=== PATIENT | female | born 1960 | race Asian ===

== ENCOUNTER 2017-09-07 08:20 | Emergency (ER) | payer OTHER ==
[~2017-09-07] VITALS: Ht 162.6 cm; Wt 65.0 kg
[~2017-09-07 08:20] MED LIST: DIAZ2 PO; ECOT81TA2 PO; MECL25CH PO
[2017-09-07 08:27] VITALS: BP 163/83; PULSE 74; RESP 17; TEMP 97.6
--- NOTE | 2017-09-07 11:19 | PD ---
HPI Chief Complaint: Abdominal Pain Time Seen by Provider: 11:18 Travel History International Travel<30 days: No Contact w/Intl Traveler<30days: No Traveled to known affect area: No History of Present Illness HPI 57-year-old female presents emergency department with right lower quadrant abdominal pain which started yesterday. Patient has history of reflux for which she takes Pepcid [id number]. Patient states the pain is localized to the right lower and middle abdomen. She denies fever, chills, but has had some nausea but no vomiting. She denies changes in her bowels and no diarrhea. She denies vaginal discharge. Pain is currently 7 out of 10 and worse with movement. It hurts her to walk or sit. Patient has no history of abdominal surgeries. Patient denies urinary symptoms. She denies flank pain. She denies . She has no known drug allergies. PFSH Past Medical History Hx Anticoagulant Therapy: No Asthma: No Blood Disorders: No Anxiety: No Depression: No Heart Rhythm Problems: No Cancer: No Cardiovascular Problems: No High Cholesterol: No Chemotherapy: No Chest Pain: No Congestive Heart Failure: No COPD: No Cerebrovascular Accident: No Diabetes: No Diminished Hearing: No Endocrine: No Genitourinary: No Headaches: Yes Immune Disorder: No Musculoskeletal: No Neurologic: No Psychiatric: No Reproductive: No Respiratory: No Radiation Therapy: No Sleep Apnea: No ?: Not : 0 Past Surgical History AICD: No Arteriovenous Shunt: No Hysterectomy: No Insulin Pump: No Joint Replacement: No Pacemaker: No Social History Alcohol Use: No Tobacco Use: No Substance Use: No Allergies-Medications (Allergen,Severity, Reaction): Coded Allergies: No Known Allergies (Verified Adverse Reaction, Unknown, 09/07/17) Reported Meds & Prescriptions Reported Meds & Active Scripts Active No Active Prescriptions or Reported Medications Review of Systems Except as stated in HPI: all other systems reviewed are Neg General / Constitutional: No: Fever, Chills Eyes: No: Visual changes HENT: No: Headaches Cardiovascular: No: Chest Pain or Discomfort Respiratory: No: Shortness of Breath Gastrointestinal: Positive: Nausea, Abdominal Pain, Loss of Appetite, No: Vomiting, Diarrhea, Constipation, Changes in Bowel Habits (See history of present illness), Indigestion, Dysphagia Genitourinary: No: Urgency, Frequency, Dysuria, Pelvic Pain, Flank Pain, Discharge, Vaginal Bleeding Musculoskeletal: No: Pain Skin: No Rash Neurologic: No: Weakness Psychiatric: No: Depression Endocrine: No: Polydipsia Hematologic/Lymphatic: No: Easy Bruising Physical Exam Narrative GENERAL: Patient appears in moderate distress. SKIN: Warm and dry. Decreased pallor. Normal turgor. HEAD: Atraumatic. Normocephalic. EYES: Pupils equal and round. No scleral icterus. No injection or drainage. ENT: No nasal bleeding or discharge. Mucous membranes pink and moist. Pharynx is clear. Airways patent NECK: Trachea midline. Supple and nontender. CARDIOVASCULAR: Regular rate and rhythm. RESPIRATORY: No accessory muscle use. Clear to auscultation. Breath sounds equal bilaterally. GASTROINTESTINAL: Abdomen soft, moderate right lower quadrant and middle suprapubic tenderness, nondistended. No significant rebound noted. Negative psoas sign. Hepatic and splenic margins not palpable. MUSCULOSKELETAL: Extremities without clubbing, cyanosis, or edema. No obvious deformities. NEUROLOGICAL: Awake and alert. No obvious cranial nerve deficits. Motor grossly within normal limits. Five out of 5 muscle strength in the arms and legs. Normal speech. PSYCHIATRIC: Appropriate mood and affect; insight and judgment normal. Data Data Last Documented VS Vital Signs Date Time Temp Pulse Resp B/P (MAP) Pulse Ox O2 Delivery O2 Flow Rate FiO2 09/07/17 12:19 61 16 129/79 (96) 98 Room Air 09/07/17 08:27 97.6 Orders Orders Complete Blood Count With Diff (09/07/17 11:25) Comprehensive Metabolic Panel (09/07/17 11:25) Lipase (09/07/17 11:25) Lactic Acid (09/07/17 11:25) Prothrombin Time / Inr (Pt) (09/07/17 11:25) Act Partial Throm Time (Ptt) (09/07/17 11:25) Urinalysis - C+S If Indicated (09/07/17 11:25) Ct Abd/Pel W Iv Contrast(Rout) (09/07/17 11:25) Iv Access Insert/Monitor (09/07/17 11:25) Ecg Monitoring (09/07/17 11:25) Oximetry (09/07/17 11:25) NPO (09/07/17 11:25) Morphine Inj (Morphine Inj) (3/29/18 11:30) Ondansetron Inj (Zofran Inj) (09/07/17 11:30) Sodium Chlor 0.9% 1000 Ml Inj (Ns 1000 M (09/07/17 11:25) Sodium Chloride 0.9% Flush (Ns Flush) (09/07/17 11:30) Famotidine Inj (Pepcid Inj) (09/07/17 11:30) Ed Urine Pregnancytest Poc (09/07/17 11:25) Us Pelvis Comp Farmworker Fruit/Non-Preg (09/07/17 13:22) Mri Abdomen W&W/O Contrast (09/07/17 ) Morphine Inj (Morphine Inj) (09/07/17 15:15) Ketorolac Inj (Toradol Inj) (09/07/17 15:30) Gadodiamide Pf Inj (Omniscan Pf Inj) (09/07/17 16:47) Labs Laboratory Tests Test 09/07/17 11:30 09/07/17 11:55 White Blood Count 14.5 TH/MM3 Red Blood Count 4.92 MIL/MM3 Hemoglobin 14.9 GM/DL Hematocrit 44.7 % Mean Corpuscular Volume 90.8 FL Mean Corpuscular Hemoglobin 30.4 PG Mean Corpuscular Hemoglobin Concent 33.5 % Red Cell Distribution Width 13.5 % Platelet Count 219 TH/MM3 Mean Platelet Volume 8.8 FL Neutrophils (%) (Auto) 78.3 % Lymphocytes (%) (Auto) 17.1 % Monocytes (%) (Auto) 3.9 % Eosinophils (%) (Auto) 0.3 % Basophils (%) (Auto) 0.4 % Neutrophils # (Auto) 11.4 TH/MM3 Lymphocytes # (Auto) 2.5 TH/MM3 Monocytes # (Auto) 0.6 TH/MM3 Eosinophils # (Auto) 0.0 TH/MM3 Basophils # (Auto) 0.1 TH/MM3 CBC Comment DIFF FINAL Differential Comment Prothrombin Time 10.0 SEC Prothromb Time International Ratio 1.0 RATIO Activated Partial Thromboplast Time 27.5 SEC Blood Urea Nitrogen 9 MG/DL Creatinine 0.72 MG/DL Random Glucose 86 MG/DL Total Protein 8.5 GM/DL Albumin 4.0 GM/DL Calcium Level 9.3 MG/DL Alkaline Phosphatase 99 U/L Aspartate Amino Transf (AST/SGOT) 23 U/L Alanine Aminotransferase (ALT/SGPT) 34 U/L Total Bilirubin 1.6 MG/DL Sodium Level 138 MEQ/L Potassium Level 3.8 MEQ/L Chloride Level 104 MEQ/L Carbon Dioxide Level 26.5 MEQ/L Anion Gap 8 MEQ/L Estimat Glomerular Filtration Rate 83 ML/MIN Lipase 131 U/L Urine Color YELLOW Urine Turbidity CLEAR Urine pH 6.5 Urine Specific [place] 1.010 Urine Protein NEG mg/dL Urine Glucose (UA) NEG mg/dL Urine Ketones 40 mg/dL Urine Occult Blood MOD Urine Nitrite NEG Urine Bilirubin NEG Urine Urobilinogen LESS THAN 2.0 MG/DL Urine Leukocyte Esterase SMALL Urine RBC 1 /hpf Urine WBC 2 /hpf Urine Squamous Epithelial Cells 5 /hpf Microscopic Urinalysis Comment CULT NOT INDICATED Lactic Acid Level 0.9 mmol/L MDM Medical Decision Making Medical Screen Exam Complete: Yes Emergency Medical Condition: Yes Differential Diagnosis Right lower quadrant pain. Appendicitis. Kidney stone. Urinary tract infection. Ovarian cyst. Ectopic . Narrative Course Patient is medically stable at time of exam Labs ordered including CBC, CMP, lactic acid, lipase, coagulation studies, and urinalysis. Urine is ordered. IV access is obtained the patient is given 1000 mL normal saline bolus. Patient is given 2 mg morphine IV as well as 4 mg Zofran IV as well as [address] of the abdomen/pelvis with IV contrast is ordered. CBC shows leukocytosis of 14.5 with 78.3% neutrophils Coagulation studies are normal. Chemistries are unremarkable except for GFR of 83, bilirubin elevated at 1.8, total protein is 8.5. Lactic acid is normal at 0.9 Urinalysis unremarkable except for 40 ketones and moderate blood. No signs of infection noted. CT shows: 1. The expected region of this cervix is significantly enlarged and measures 7.2 x 4.8 cm. The uterine endometrium also appears somewhat thickened for the patient's age. Pelvic ultrasound may be helpful for further evaluation of this finding. 2. Enlarged fibroid uterus. 3. 3.5 cm left ovarian cyst. 4. Lobulated low density lesion within the left lobe of liver measuring 2.4 cm in greatest dimension which is indeterminate. MRI of the abdomen with contrast may be helpful for further evaluation of this finding. Pelvic ultrasound, and abdominal MRI with and without contrast is ordered. Ultrasound shows: 1. There is a focal uterine fibroid measuring 3.4 cm on the left lower uterine segment. 2. Tiny 5 mm cyst associated with the endometrial lining. 3. Left ovarian cyst measuring 2.8 cm. No free fluid in the cul-de-sac. Abdominal MRI shows: CONCLUSION: Left lobe liver cyst. Otherwise unremarkable Patient is felt to have pain due to her fibroids and ovarian cyst. Patient will be treated with ibuprofen 600 mg 3 times daily #30. Patient is given Zofran 4 mg every 6 hours as needed nausea and vomiting Recommend close follow-up with a local [employer]GR[employer]MICALS INSPECTOR as discussed. Patient can return if symptoms worsen as needed. Diagnosis Primary Impression: Fibroid Qualified Codes: D25.9 - Leiomyoma of uterus, unspecified Additional Impression: Ovarian cyst Qualified Codes: N83.202 - Unspecified ovarian cyst, left side Referrals: [facility] Patient Instructions: General Instructions, Ovarian Cyst (ED) Additional Instructions: CBC shows leukocytosis of 14.5 with 78.3% neutrophils Coagulation studies are normal. Chemistries are unremarkable except for GFR of 83, bilirubin elevated at 1.8, total protein is 8.5. Lactic acid is normal at 0.9 Urinalysis unremarkable except for 40 ketones and moderate blood. No signs of infection noted. CT shows: 1. The expected region of this cervix is significantly enlarged and measures 7.2 x 4.8 cm. The uterine endometrium also appears somewhat thickened for the patient's age. Pelvic ultrasound may be helpful for further evaluation of this finding. 2. Enlarged fibroid uterus. 3. 3.5 cm left ovarian cyst. 4. Lobulated low density lesion within the left lobe of liver measuring 2.4 cm in greatest dimension which is indeterminate. MRI of the abdomen with contrast may be helpful for further evaluation of this finding. Pelvic ultrasound, and abdominal MRI with and without contrast is ordered. Ultrasound shows: 1. There is a focal uterine fibroid measuring 3.4 cm on the left lower uterine segment. 2. Tiny 5 mm cyst associated with the endometrial lining. 3. Left ovarian cyst measuring 2.8 cm. No free fluid in the cul-de-sac. Abdominal MRI shows: CONCLUSION: Left lobe liver cyst. Otherwise unremarkable Patient is felt to have pain due to her fibroids and ovarian cyst. Patient will be treated with ibuprofen 600 mg 3 times daily #30. Patient is given Zofran 4 mg every 6 hours as needed nausea and vomiting Recommend close follow-up with a local A[employer]IC[employer]MICALS INSPECTOR as discussed. Patient can return if symptoms worsen as needed. Med/Other Pt SpecificInfo: Prescription(s) given Scripts No Active Prescriptions or Reported Meds Disposition: 01 DISCHARGE HOME Condition: Stable Renato Loomis Sep 07, 2017 11:19
[2017-09-07] MEDS ORDERED: SODIUM CHLOR 0.9% 1000 ML INJ 1,000 ML IV SCH (11:25)
[2017-09-07] MEDS ORDERED: SODIUM CHLORIDE 0.9% FLUSH 10 ML FLUSH IV FLUSH PRN (11:30)
[2017-09-07] MEDS ORDERED: MORPHINE SULFATE 4 MG/ML INJ IV PUSH ONE ×2 (11:30→15:15)
[2017-09-07] MEDS ORDERED: FAMOTIDINE 20 MG/2 ML VIAL IV PUSH ONE (11:30)
[2017-09-07] MEDS ORDERED: ONDANSETRON HCL 4 MG/2 ML VIAL IVP ONE (11:30)
[2017-09-07 12:19] VITALS: BP 129/79; PULSE 61; RESP 16; O2SAT 98
[2017-09-07 12:30] LABS: AUTOMATED NEUTROPHIL # 11.4 TH/MM3 (1.8-7.7); BASOPHIL # 0.1 TH/MM3 (0-0.2); BASOPHIL % 0.4 % (0.0-2.0); EOSINOPHIL % 0.3 % (0.0-4.0); HEMATOCRIT 44.7 % (35.0-46.0); HEMOGLOBIN 14.9 GM/DL (11.6-15.3); LYMPH % 17.1 % (9.0-44.0); LYMPHOCYTE # 2.5 TH/MM3 (1.0-4.8); MEAN CELL VOLUME 90.8 FL (80.0-100.0); MEAN CORPUSCULAR HEMOGLOBIN 30.4 PG (27.0-34.0); MEAN CORPUSCULAR HGB CONC 33.5 % (32.0-36.0); MEAN PLATELET VOLUME 8.8 FL (7.0-11.0); MONO % 3.9 % (0.0-8.0); MONOCYTE # 0.6 TH/MM3 (0-0.9); NEUT % 78.3 % (16.0-70.0); PLATELET COUNT 219 TH/MM3 (150-450); RED BLOOD COUNT 4.92 MIL/MM3 (4.00-5.30); RED CELL DISTRIBUTION WIDTH 13.5 % (11.6-17.2); WHITE BLOOD COUNT 14.5 TH/MM3 (4.0-11.0)
[2017-09-07] MEDS ORDERED: IOHEXOL 350 MG/ML 10 ML VIAL (for RAD DIAG) IVCONTRAST ONE (12:32)
[2017-09-07 12:41] LABS: AST (GOT) 23 U/L (15-37); BICARBONATE 26.5 MEQ/L (21.0-32.0); BLOOD UREA NITROGEN 9 MG/DL (7-18); CALCIUM 9.3 MG/DL (8.5-10.1); CHLORIDE 104 MEQ/L (98-107); CREATININE 0.72 MG/DL (0.50-1.00); GLOMERULAR FILTRATION RATE 83 ML/MIN (>89); GLUCOSE,RANDOM 86 MG/DL (74-106); SODIUM (NA) 138 MEQ/L (136-145)
[2017-09-07 12:42] LABS: ALT (GPT) 34 U/L (10-53)
[2017-09-07 12:44] LABS: ALKALINE PHOSPHATASE 99 U/L (45-117); TOTAL BILIRUBIN ADULT 1.6 MG/DL (0.2-1.0); TOTAL PROTEIN 8.5 GM/DL (6.4-8.2)
[2017-09-07 12:47] LABS: BILIRUBIN, URINE NEG (NEG); BLOOD, URINE MOD (NEG); GLUCOSE,URINE NEG (NEG); KETONE, URINE 40 mg/dL (NEG); NITRITE,URINE NEG (NEG); PH, URINE 6.5 (5.0-8.5); SQUAMOUS EPITHELIAL CELL URINE 5 /hpf (0-5); URINE COLOR YELLOW (YELLW/STRAW); URINE LEUKOCYTE ESTERASE SMALL (NEG)
--- NOTE | 2017-09-07 13:14 | RADRPT ---
EXAM DATE/TIME: 09/07/2017 12:32 [facility] COMPARISON: No previous studies available for comparison. INDICATIONS : Abdominal pain since last night. IV CONTRAST: 94 cc Omnipaque 350 (iohexol) IV ORAL CONTRAST: No oral contrast ingested. RADIATION DOSE: 6.99 CTDIvol (mGy) MEDICAL HISTORY : None SURGICAL HISTORY : None. ENCOUNTER: Initial ACUITY: 1 day PAIN SCALE: 6/10 LOCATION: abdomen TECHNIQUE: Volumetric scanning of the abdomen and pelvis was performed. Using automated exposure control and ad justment of the mA and/or kV according to patient size, radiation dose was kept as low as reasonably achievable to obtain optimal diagnostic quality images. DICOM format image data is available electro nically for review and comparison. FINDINGS: LOWER LUNGS: Posterior bibasilar atelectatic changes are noted. LIVER: There is a lobulated low density lesion within the left lobe of liver measuring 2.4 cm which is indet erminate. MRI of the abdomen with contrast may be helpful for further evaluation this finding if clin ically indicated. There is no dilation of the biliary tree. No calcified gallstones. SPLEEN: Normal size without lesion. PANCREAS: Within normal limits. KIDNEYS: Normal in size and shape. There is no mass, stone or hydronephrosis. ADRENAL GLANDS: Within normal limits. VASCULAR: There is no aortic aneurysm. BOWEL/MESENTERY: The stomach, small bowel, and colon demonstrate no acute abnormality. There is no free intraperitone al air or fluid. ABDOMINAL WALL: Within normal limits. RETROPERITONEUM: There is no lymphadenopathy. BLADDER: No wall thickening or mass. REPRODUCTIVE: The expected region of the cervix is significantly enlarged and measures 7.2 cm transverse by 4.8 cm AP dimension. The endometrium also appears somewhat thickened for the patient's age. Pelvic ultrasoun d may be helpful for further evaluation of this finding. There is an enlarged fibroid uterus. 5 cm le ft fundal fibroid is noted. There is a 3.5 x 2.9 cm left ovarian cyst. INGUINAL: There is no lymphadenopathy or hernia. MUSCULOSKELETAL: Degenerative changes and scoliosis of the thoracolumbar spine are noted. CONCLUSION: 1. The expected region of this cervix is significantly enlarged and measures 7.2 x 4.8 cm. The uterin e endometrium also appears somewhat thickened for the patient's age. Pelvic ultrasound may be helpful for further evaluation of this finding. 2. Enlarged fibroid uterus. 3. 3.5 cm left ovarian cyst. 4. Lobulated low density lesion within the left lobe of liver measuring 2.4 cm in greatest dimension which is indeterminate. MRI of the abdomen with contrast may be helpful for further evaluation of thi s finding. Andrew Denise MD on September 07, 2017 at 13:03 Board Certified Radiologist. This report was verified electronically.
--- NOTE | 2017-09-07 15:04 | PD ---
Physical Exam Date Seen by Provider: Sep 07, 2017 Narrative Patient presents with a chief complaint of lower abdominal pain. Onset was yesterday. The patient was given morphine early in her stay in the emergency department and reports good relief of her pain with morphine. However, the morphine has now worn off. She would like to have another dose. Her abdomen is soft with some suprapubic tenderness but no guarding or rebound. Data Data Last Documented VS Vital Signs Date Time Temp Pulse Resp B/P (MAP) Pulse Ox O2 Delivery O2 Flow Rate FiO2 09/07/17 12:19 61 16 129/79 (96) 98 Room Air 09/07/17 08:27 97.6 Orders Orders Complete Blood Count With Diff (09/07/17 11:25) Comprehensive Metabolic Panel (09/07/17 11:25) Lipase (09/07/17 11:25) Lactic Acid (09/07/17 11:25) Prothrombin Time / Inr (Pt) (09/07/17 11:25) Act Partial Throm Time (Ptt) (09/07/17 11:25) Urinalysis - C+S If Indicated (09/07/17 11:25) Ct Abd/Pel W Iv Contrast(Rout) (09/07/17 11:25) Iv Access Insert/Monitor (09/07/17 11:25) Ecg Monitoring (09/07/17 11:25) Oximetry (09/07/17 11:25) NPO (09/07/17 11:25) Morphine Inj (Morphine Inj) (09/07/17 11:30) Ondansetron Inj (Zofran Inj) (09/07/17 11:30) Sodium Chlor 0.9% 1000 Ml Inj (Ns 1000 M (09/07/17 11:25) Sodium Chloride 0.9% Flush (Ns Flush) (09/07/17 11:30) Famotidine Inj (Pepcid Inj) (09/07/17 11:30) Ed Urine Pregnancytest Poc (09/07/17 11:25) Us Pelvis Comp Furnace Setter/Non-Preg (09/07/17 13:22) Mri Abdomen W&W/O Contrast (09/07/17 ) Morphine Inj (Morphine Inj) (09/07/17 15:15) Labs Laboratory Tests Test 09/07/17 11:30 09/07/17 11:55 White Blood Count 14.5 TH/MM3 Red Blood Count 4.92 MIL/MM3 Hemoglobin 14.9 GM/DL Hematocrit 44.7 % Mean Corpuscular Volume 90.8 FL Mean Corpuscular Hemoglobin 30.4 PG Mean Corpuscular Hemoglobin Concent 33.5 % Red Cell Distribution Width 13.5 % Platelet Count 219 TH/MM3 Mean Platelet Volume 8.8 FL Neutrophils (%) (Auto) 78.3 % Lymphocytes (%) (Auto) 17.1 % Monocytes (%) (Auto) 3.9 % Eosinophils (%) (Auto) 0.3 % Basophils (%) (Auto) 0.4 % Neutrophils # (Auto) 11.4 TH/MM3 Lymphocytes # (Auto) 2.5 TH/MM3 Monocytes # (Auto) 0.6 TH/MM3 Eosinophils # (Auto) 0.0 TH/MM3 Basophils # (Auto) 0.1 TH/MM3 CBC Comment DIFF FINAL Differential Comment Prothrombin Time 10.0 SEC Prothromb Time International Ratio 1.0 RATIO Activated Partial Thromboplast Time 27.5 SEC Blood Urea Nitrogen 9 MG/DL Creatinine 0.72 MG/DL Random Glucose 86 MG/DL Total Protein 8.5 GM/DL Albumin 4.0 GM/DL Calcium Level 9.3 MG/DL Alkaline Phosphatase 99 U/L Aspartate Amino Transf (AST/SGOT) 23 U/L Alanine Aminotransferase (ALT/SGPT) 34 U/L Total Bilirubin 1.6 MG/DL Sodium Level 138 MEQ/L Potassium Level 3.8 MEQ/L Chloride Level 104 MEQ/L Carbon Dioxide Level 26.5 MEQ/L Anion Gap 8 MEQ/L Estimat Glomerular Filtration Rate 83 ML/MIN Lipase 131 U/L Urine Color YELLOW Urine Turbidity CLEAR Urine pH 6.5 Urine Specific [place] 1.010 Urine Protein NEG mg/dL Urine Glucose (UA) NEG mg/dL Urine Ketones 40 mg/dL Urine Occult Blood MOD Urine Nitrite NEG Urine Bilirubin NEG Urine Urobilinogen LESS THAN 2.0 MG/DL Urine Leukocyte Esterase SMALL Urine RBC 1 /hpf Urine WBC 2 /hpf Urine Squamous Epithelial Cells 5 /hpf Microscopic Urinalysis Comment CULT NOT INDICATED Lactic Acid Level 0.9 mmol/L MDM Supervised Visit with ISHMAEL: Yes Narrative Course I, Dr. Ceballos, have reviewed the advance practice practitioner's documentation and am in agreement, met with the patient face to face, made the diagnosis, and the medical decision making was done by me. *My assessment and Findings: Last Impressions Abdomen/Pelvis CT 09/07/17 1125 Signed Impressions: Service Date/Time: August 12:32 - CONCLUSION: 1. The expected region of this cervix is significantly enlarged and measures 7.2 x 4.8 cm. The uterine endometrium also appears somewhat thickened for the patient's age. Pelvic ultrasound may be helpful for further evaluation of this finding. 2. Enlarged fibroid uterus. 3. 3.5 cm left ovarian cyst. 4. Lobulated low density lesion within the left lobe of liver measuring 2.4 cm in greatest dimension which is indeterminate. MRI of the abdomen with contrast may be helpful for further evaluation of this finding. Andrew Denise MD Ultrasound and MRI have been done. Results are not yet available Please see Arsen Loomis PA-C's note for results of laboratory and radiographic evaluation, ED course, final diagnosis and disposition Scripts No Active Prescriptions or Reported Meds Condition: Stable Julianne Ceballos MD Sep 07, 2017 15:04
--- NOTE | 2017-09-07 15:14 | RADRPT ---
EXAM DATE/TIME: 09/07/2017 14:31 [facility] COMPARISON: No previous studies available for comparison. INDICATIONS : Pelvic pain. MEDICAL HISTORY : None. SURGICAL HISTORY : None. ENCOUNTER: Initial ACUITY: 1 day PAIN SCORE: 7/10 LOCATION: Bilateral pelvis MEASUREMENTS: UTERUS: 9.8 x 5.9 x 5.5 cm ENDOMETRIAL STRIPE: 8 mm RIGHT OVARY: 2.8 x 1.7 x 1.6 cm LEFT OVARY: 4.5 x 3.2 x 3.0 cm FINDINGS: UTERUS: The myometrium has homogeneous echotexture.The endometrial cavity is empty. The endometrial lining me asuring 5 mm. There also appears to be a focal uterine fibroid along the left lower uterine segment m easuring 3.4 cm. RIGHT OVARY: Ovary contains no mass or significant cystic lesion. LEFT OVARY: There is a left ovarian cyst measuring 2.8 x 2.6 cm. MISCELLANEOUS: No free fluid. CONCLUSION: 1. There is a focal uterine fibroid measuring 3.4 cm on the left lower uterine segment. 2. Tiny 5 mm cyst associated with the endometrial lining. 3. Left ovarian cyst measuring 2.8 cm. No free fluid in the cul-de-sac. Addison Barriga MD on September 07, 2017 at 15:10 Board Certified Radiologist. This report was verified electronically.
[2017-09-07] MEDS ORDERED: KETOROLAC TROMETHAMINE 30 MG/ML (IVP) VIAL IV PUSH ONE (15:30)
[2017-09-07] MEDS ORDERED: GADODIAMIDE PF 287 MG/ML 5 ML VIAL (for RAD MRI) IVCONTRAST ONE (16:47)
--- NOTE | 2017-09-07 17:00 | RADRPT ---
EXAM DATE/TIME: 09/07/2017 16:17 [facility] COMPARISON: CT ABDOMEN & PELVIS W CONTRAST, September 07, 2017, 12:32. INDICATIONS : Liver mass. Abnormal CT. Abdominal pain. CONTRAST: 13 cc Omniscan (gadodiamide) IV MEDICAL HISTORY : None. SURGICAL HISTORY : None. ENCOUNTER: Initial ACUITY: 2 day PAIN SCORE: 5/10 LOCATION: Abdomen. TECHNIQUE: Multiplanar, multisequence magnetic resonance imaging of the abdomen was performed without and with i ntravenous contrast. FINDINGS: LIVER: There is a 2.4 cm cyst in the left lobe of the liver. No suspicious liver mass. No biliary ductal dil atation. Gallbladder is unremarkable. BILIARY: There is no intra- or extra-hepatic biliary ductal dilatation. Gallbladder contains no stones. SPLEEN: Within normal limits. PANCREAS: Within normal limits. ADRENALS: Within normal limits. KIDNEYS: Normal size and signal intensity. There is no hydronephrosis or mass. OTHER: Aorta is nonaneurysmal. There is no lymphadenopathy. CONCLUSION: Left lobe liver cyst. Otherwise unremarkable Glenroy Staples MD on September 07, 2017 at 16:57 Board Certified Radiologist. This report was verified electronically.
[2017-09-07] MEDS ORDERED: IBUP-232 PO (17:14)
[2017-09-07] MEDS ORDERED: ZOFR4TAB PO (17:14)
== END 2017-09-07 17:26 | disposition home or self-care (01) ==
LOC: NEPD 08:20
DX: D25.9 Leiomyoma of uterus, unspecified (principal); N83.202 Unspecified ovarian cyst, left side; K21.9 Gastro-esophageal reflux disease without esophagitis; K76.89 Other specified diseases of liver
CPT/HCPCS: 74177; 74183; 76856; 80053; 81001; 83605; 83690; 84703; 85025; 85610; 85730; 96361; 96374; 96375; 96376; 99285; A9579; J1885; J2270; J2405; J7030; Q9967